=== PATIENT | female | born 1930 | race Caucasian/White ===

== ENCOUNTER → 2018-07-13 | Outpatient (CLI) | payer MEDICARE, OTHER ==
[~2018-07-13] MED LIST: REGADENOSON INJ 0.4 MG/5 ML DISP.SYRIN IV ONE
--- NOTE | 2018-07-15 16:53 | DRAGON STRESS TEST REPORT ---
Intravenous Lexiscan Cardiolite stress test using single photon emmision computerized tomography. Date of procedure: 07/13/2018. Ordering Provider: Dr. Sandra Gallardo. Patient's status: Outpatient. Indication: Dyspnea. Coronary risk factors: Age, hypertension, and dyslipidemia. Resting EKG: Sinus Bradycardia. Nonspecific T wave changes diffuse. Stress EKG: No changes of ischemia. The patient no chest pain or discomfort, and there were no arrhythmias seen. Reason for termination: Protocol. Conclusions: Normal EKG and hemodynamic response to IV Lexiscan. Nuclear data: At rest the patient was given 13.06 millicuries of technetium 99m sestamibi injected intravenously. As per protocol rest non gated SPECT images were obtained. Subsequently the patient was given intravenous Lexiscan at a dose of 0.4 mg in 5 mL intravenously, followed by flush with normal saline. Subsequently the stress dose of 38.0 millicuries of technetium 99m sestamibi was injected intravenously. As per protocol stress gated images were obtained. Nuclear interpretation: Review of images showed that all segments of the myocardium had normal perfusion at rest, and normal perfusion post stress with IV Lexiscan. All segments of the myocardium had normal motion, contraction, and thickening by gated study. T. I D. ratio was normal at 1.13. Computer read rest, and stress left ventricular ejection fraction were 64 %, and 64 %, respectively. Conclusion: 1. There is no scintigraphic evidence of Lexiscan induced myocardial ischemia. 2. There is no scintigraphic evidence of myocardial infarction/scar. Recommendations: Aggressive risk factor modification, and treating the underlying co- morbidities. JESSD
== END ==
LOC: RAD 07:59
PROVIDERS: ATTEND Internal Medicine Cardiovascular Disease
DX: R06.00 Dyspnea, unspecified (principal)
CPT/HCPCS: 93017; 78452; A9500; J2785; Q9969

== ENCOUNTER 2018-07-21 17:20 | Emergency (ER) | payer MEDICARE, OTHER ==
[2018-07-21] MEDS ORDERED: HYDRALAZINE HCL INJ/PF 20 MG/1 ML SDV IV ONE (18:18)
[2018-07-21 18:36] LABS: ABSOLUTE EOSINOPHILS # (AUTO) 0.1 10^3/uL (0.0-0.6); ABSOLUTE LYMPHOCYTES (AUTO) 1.4 10^3/uL (0.5-4.7); ABSOLUTE MONOCYTES (AUTO) 0.9 10^3/uL (0.1-1.4); ABSOLUTE NEUT (AUTO) 3.3 10^3/uL (1.7-8.2); BASOPHILS % (AUTO) 0.5 % (0-2); EOSINOPHILS % (AUTO) 1.5 % (0-6); HEMATOCRIT 40.2 % (36.0-47.0); HEMOGLOBIN 13.4 g/dL (12.0-15.5); MEAN CORPUSCULAR HEMOGLOBIN 30.8 pg (27.0-33.4); MEAN CORPUSCULAR HGB CONC 33.2 g/dL (32.0-36.0); MEAN CORPUSCULAR VOLUME 93 fl (80-97); MONOCYTES % (AUTO) 15.6 % (3-13); PLATELET COUNT 181 10^3/uL (150-450); RED BLOOD COUNT 4.33 10^6/uL (3.72-5.28); RED CELL DISTRIBUTION WIDTH 13.9 % (11.5-14.0); SEGMENTED NEUTROPHILS % (AUTO) 58.4 % (42-78); TOTAL CELLS COUNTED % (AUTO) 100 %; WHITE BLOOD COUNT 5.7 10^3/uL (4.0-10.5)
[2018-07-21 18:37] LABS: ALANINE AMINOTRANSFERASE 24 U/L (9-52); ALBUMIN 4.1 g/dL (3.5-5.0); ALKALINE PHOSPHATASE 72 U/L (38-126); ANION GAP 11 (5-19); ASPARTATE AMINO TRANSFERASE 26 U/L (14-36); BILIRUBIN,DIRECT 0.4 mg/dL (0.0-0.4); BILIRUBIN,TOTAL 0.8 mg/dL (0.2-1.3); BLOOD UREA NITROGEN 13 mg/dL (7-20); CALCIUM 9.2 mg/dL (8.4-10.2); CARBON DIOXIDE 30 mmol/L (22-30); CHLORIDE 105 mmol/L (98-107); GLUCOSE 123 mg/dL (75-110); LIPASE 60.7 U/L (23-300); SODIUM 145.8 mmol/L (137-145); TOTAL PROTEIN 7.3 g/dL (6.3-8.2)
[2018-07-21 18:49] LABS: CREATINE KINASE MB 1.6 ng/mL (<4.55); TROPONIN I 0.026 ng/mL
--- NOTE | 2018-07-21 18:57 | RADIOLOGY REPORT (SQ) ---
EXAM DESCRIPTION: CHEST SINGLE VIEW COMPLETED DATE/TIME: 07/21/2018 6:39 pm REASON FOR STUDY: fatigue COMPARISON: None. EXAM PARAMETERS: NUMBER OF VIEWS: One view. TECHNIQUE: Single frontal radiographic view of the chest acquired. RADIATION DOSE: NA LIMITATIONS: None. FINDINGS: LUNGS AND PLEURA: No opacities, masses or pneumothorax. No pleural effusion. MEDIASTINUM AND HILAR STRUCTURES: No masses. Contour normal. HEART AND VASCULAR STRUCTURES: Moderate cardiomegaly BONES: Osteoporotic HARDWARE: None in the chest. OTHER: No other significant finding. IMPRESSION: Cardiomegaly. No acute infiltrates or pleural effusion TECHNICAL DOCUMENTATION: JOB ID: [id number] [employer]- All Rights Reserved Reading location - IP/workstation name: [email or web address]
--- NOTE | 2018-07-21 21:31 | ER Document Report ---
ED Cardiac - General Chief Complaint: Chest Pain Stated Complaint: ABNORMAL HEART RATE Time Seen by Provider: 07/21/18 17:48 Mode of Arrival: Ambulatory Information source: Patient, Relative TRAVEL OUTSIDE OF THE [place] IN LAST 30 DAYS: No - HPI Patient complains to provider of: Other - 88-year-old female with past medical history significant for hypertension that presents for evaluation of low heart rate from her primary physician's office. She notes that over the last several months she has had extreme emotional stress and as a result she believes that she has been having increasing chest pain and weakness as well as fatigue during that time. - Related Data Allergies/Adverse Reactions: codeine Adverse Reaction (Verified 07/21/18 17:23) Past Medical History - General Information source: Patient - Social History Smoking Status: Former Smoker Family History: None Patient has suicidal ideation: No Patient has homicidal ideation: No Renal/ Medical History: Denies: Hx Peritoneal Dialysis Review of Systems - Review of Systems -: Yes All other systems reviewed and negative Physical Exam - Vital signs Vitals: Resp Pulse Ox 14 97 07/21/18 17:47 07/21/18 17:47 - General General appearance: Appears well In distress: None - HEENT Head: Normocephalic Eyes: Normal Conjunctiva: Normal Cornea: Normal Extraocular movements intact: Yes - Respiratory Respiratory status: No respiratory distress Chest status: Nontender Breath sounds: Normal Chest palpation: Normal - Cardiovascular Rhythm: Bradycardia Heart sounds: Normal auscultation Murmur: No - Abdominal Inspection: Normal Distension: No distension Tenderness: Nontender Organomegaly: No organomegaly - Back Back: Normal - Extremities General upper extremity: Normal inspection, Nontender, Normal color, Normal ROM , Normal temperature General lower extremity: Normal inspection, Nontender, Normal color, Normal ROM , Normal temperature, Normal weight bearing. No: Gisela's sign - Neurological Neuro grossly intact: Yes Cognition: Normal Orientation: AAOx4 Araseli Coma Scale Eye Opening: Spontaneous [place] Coma Scale Verbal: Oriented [place] Coma Scale Motor: Obeys Commands [place] Coma Scale Total: 15 Speech: Normal Motor strength normal: LUE, RUE, LLE, RLE Sensory: Normal - Psychological Associated symptoms: Normal affect, Normal mood Course - Re-evaluation Re-evalutation: He was an 88-year-old female that presents for evaluation of abnormally low heart rate. In the past she been treated for hypertension. She appears well, does not have complaints at this time but has been feeling fatigued recently. Notably her heart rate on arrival was 40. Her EKG demonstrates what appears to be a sinus rhythm at 40 bpm with a normal axis and narrow complex with a nonconducted P after each QRS. There is a similar EKG from her primary physician's office. Patient may have a second degree type II heart block or type III. We will obtain broad workup for this patient for cardiac markers. Will place on monitor. Will administer hydralazine for elevated blood pressure. We will administer diuretic as well she does have some edema and elevated BNP. We will plan to contact cardiology, Dr. Gabmoa reviewed EKG with me and notes that he believes that this is a type II second-degree heart block. Patient remains asymptomatic at this time though her heart rate does oscillate between the mid 30s and 70s. I discussed the case with the mid level net developer at [facility] Dr. Tony Griffin will agree to accept this patient in transport for consideration of pacemaker placement. We will plan for cardiac monitoring in the emergency department and reassessment. We will plan for initiation of medications for treatment of her bradycardia if needed however at this time she is asymptomatic and otherwise feeling well. She is likely been in this rhythm for several weeks. Patient transport may be slightly delayed to get to [facility]. - Vital Signs Vital signs: Temp Pulse Resp BP Pulse Ox 98.6 F 42 L 19 185/64 H 96 07/21/18 20:02 07/21/18 18:46 07/21/18 20:02 07/21/18 20:02 07/21/18 20:02 - Laboratory Result Diagrams: 07/21/18 17:47 07/21/18 17:47 Laboratory results interpreted by me: 07/21/18 07/21/18 07/21/18 17:47 17:47 17:47 Monocytes % 15.6 H Sodium 145.8 H Glucose 123 H NT-Pro-B Natriuret Pep 3120 H Critical Care Note - Critical Care Note Total time excluding time spent on procedures (mins): 35 Discharge - Discharge Clinical Impression: Bradycardia, Mobitz type 2 second degree heart block Hypertension Qualifiers: Hypertension type: unspecified Qualified Code(s): I10 - Essential (primary) hypertension Condition: Stable Disposition: [facility]
--- NOTE | 2018-07-21 22:41 | EKG REPORT ---
SEVERITY:- ABNORMAL ECG - 2:1 HIGH GRADE AV BLOCK PROBABLE LEFT ATRIAL ABNORMALITY RIGHT BUNDLE BRANCH BLOCK REC REPEAT EKG : Confirmed by: Joe Ortiz 21-Jul-2018 22:40:24
[2018-07-22 02:39] VITALS: BP 166/65
== END 2018-07-22 02:50 | disposition short-term general hospital (02) ==
LOC: ER 17:20
DX: R00.1 Bradycardia, unspecified (principal); R07.9 Chest pain, unspecified; I44.1 Atrioventricular block, second degree; I10 Essential (primary) hypertension; Z88.6 Allergy status to analgesic agent
CPT/HCPCS: 93005; 99291; 96374; 36415; 82553; 83690; 85025; 80053; 84484; 83880; 71045; 93010; J0360